=== PATIENT | female | born 1935 | race Two or more races ===

== ENCOUNTER 2024-04-30 10:14 | Inpatient (IN) | payer MEDICARE, MEDICAID ==
[~2024-04-30] VITALS: Ht 162.6 cm; Wt 95.3 kg
[2024-04-30 10:28] VITALS: TEMP 98.1
[2024-04-30 11:18] LABS: BASOPHILS % (AUTO) 0.3 % (0.0-2.0); EOSINOPHILS % (AUTO) 0.5 % (0.0-6.0); HEMATOCRIT 41 % (33-45); HEMOGLOBIN 13.4 g/dL (11.5-14.8); LYMPHOCYTES # (AUTO) 1.5 K/uL (0.8-4.8); LYMPHOCYTES % (AUTO) 18.9 % (20.0-44.0); MEAN CORPUSCULAR HEMOGLOBIN 29 PG (26.0-33.0); MEAN CORPUSCULAR HGB CONC 33 g/dl (31.0-36.0); MEAN CORPUSCULAR VOLUME 88 fL (82-100); MONOCYTES # (AUTO) 0.4 K/uL (0.1-1.30); MONOCYTES % (AUTO) 5.8 % (2.0-12.0); NEUTROPHILS # (AUTO) 5.8 K/uL (1.8-8.9); NEUTROPHILS % (AUTO) 74.5 % (43.0-81.0); PLATELET COUNT (AUTO) 194 K/uL (150-450); RED BLOOD CELL COUNT(AUTO) 4.66 MIL/uL (4.0-5.2); RED CELL DISTRIBUTION WIDTH 14.2 % (11.5-15.0); WHITE BLOOD COUNT (AUTO) 7.7 K/uL (4.3-11.0)
[2024-04-30 11:34] LABS: ALANINE AMINOTRANSFERASE 19 U/L (12-78); ALBUMIN 3.6 g/dL (3.4-5.0); ALKALINE PHOSPHATASE 88 U/L (46-116); ASPARTATE AMINOTRANSFERASE 18 U/L (15-37); BILIRUBIN,DIRECT 0.1 mg/dL (0.0-0.2); BILIRUBIN,TOTAL 0.6 mg/dL (0.2-1.0); CALCIUM, SERUM 9.1 mg/dL (8.5-10.1); CARBON DIOXIDE 25 mmol/L (21-32); CHLORIDE 108 mmol/L (98-107); CREATININE 0.8 mg/dL (0.6-1.3); GLUCOSE 110 mg/dL (74-106); LIPASE 20 U/L (16-77); POTASSIUM 4.1 mmol/L (3.5-5.1); SODIUM SERUM 142 mmol/L (136-145); TOTAL PROTEIN, SERUM 7.6 g/dL (6.4-8.2); UREA NITROGEN, BLOOD 14 mg/dL (7-18)
[2024-04-30] MEDS ORDERED: ASPIRIN 81 MG TAB.CHEW ONE (12:00)
[2024-04-30] MEDS: MORPHINE SULFATE INJ 2 MG/ML DISP.SYRIN IV ONE ×2 (12:00→12:19)
[2024-04-30] MEDS: ASPIRIN 81 MG TAB.CHEW PO ONE (12:02)
[2024-04-30 12:06] LABS: APPEARANCE,URINE CLEAR (CLEAR); BILIRUBIN,URINE NEGATIVE (NEGATIVE); BLOOD, URINE NEGATIVE Ery/uL (NEGATIVE); COLOR,URINE YELLOW (YELLOW); KETONES,URINE NEGATIVE (NEGATIVE); LEUKOCYTE ESTERASE ,URINE TRACE (NEGATIVE); NITRITE, URINE NEGATIVE (NEGATIVE); PROTEIN,URINE NEGATIVE (NEGATIVE); UGLUCOSE NEGATIVE (NEGATIVE); UROBILINOGEN,URINE 0.2 EU/dL (0.2)
[2024-04-30] MEDS ORDERED: MORPHINE SULFATE INJ 2 MG/ML DISP.SYRIN ONE (12:09)
[2024-04-30] MEDS ORDERED: ONDANSETRON HCL/PF 4 MG/2 ML VIAL ONE (12:14)
[2024-04-30] MEDS: ONDANSETRON HCL/PF - ER 4 MG/2 ML VIAL IV ONE (12:18)
[2024-04-30 12:29] LABS: ADD URINE CULTURE YES; BACTERIA,URINE Rare /HPF (None Seen)
[2024-04-30] MEDS ORDERED: ACETAMINOPHEN 325 MG TABLET PO PRN (14:00)
[2024-04-30] MEDS ORDERED: MORPHINE SULFATE INJ 2 MG/ML DISP.SYRIN IV PRN (14:00)
[2024-04-30] MEDS ORDERED: MAGNESIUM HYDROXIDE 30 ML UDC PO PRN (14:00)
[2024-04-30] MEDS ORDERED: NITROGLYCERIN 0.4 MG/TAB BOTTLE SL PRN (14:00)
[2024-04-30] MEDS ORDERED: ONDANSETRON HCL/PF 4 MG/2 ML VIAL IVP PRN (14:00)
[2024-04-30] MEDS ORDERED: ZOLPIDEM TARTRATE 5 MG TABLET PO PRN (14:00)
[2024-04-30] MEDS ORDERED: MAG HYDROX/AL HYDROX/SIMETH 30 ML UDC PO PRN (14:00)
[2024-04-30] MEDS ORDERED: Z GUARD REMEDY 4 OZ OINT TP PRN (14:00)
[2024-04-30] MEDS ORDERED: ENOXAPARIN SODIUM 40 MG/0.4 ML DISP.SYRIN SQ SCH (14:00)
[2024-04-30 14:42] VITALS: BP 158/91; O2SAT 96
[2024-04-30] MEDS ORDERED: ENOXAPARIN SODIUM 100 MG/ML DISP.SYRIN SQ SCH (15:00)
[2024-05-01] MEDS ORDERED: PANTOPRAZOLE 40 MG TABLET.DR PO SCH (07:30)
[2024-05-01] MEDS ORDERED: ASPIRIN EC 81 MG TABLET.DR PO SCH (09:00)
== END 2024-04-30 18:07 | disposition left against medical advice (07) | DRG 551 ==
LOC: ER 10:28 → TELE 13:48
DX: M54.9 Dorsalgia, unspecified (principal); I21.4 Non-ST elevation (NSTEMI) myocardial infarction; I10 Essential (primary) hypertension; Z95.0 Presence of cardiac pacemaker; Z91.81 History of falling; R07.9 Chest pain, unspecified; Z53.29 Procedure and treatment not carried out because of patient's decision for other reasons
CPT/HCPCS: 36415; 71250-TC; 80048-TC; 80076-TC; 81001; 83690-TC; 84484-TC; 85025-TC; 85378-TC; 87086-TC; G0378; J2270; J2405